=== PATIENT | female | born 1975 | race Caucasian/White ===

== ENCOUNTER 2020-02-25 05:09 | Day surgery (SDC) | payer BC ==
[2020-02-24 11:48] LABS: BASOPHILS 0.8 % (0-2); EOSINOPHILS 2.1 % (0-7); HEMATOCRIT 35.8 % (36.0-48.0); HEMOGLOBIN 10.4 g/dL (12-16); IMMATURE GRANULOCYTES 0.2 % (0-5); LYMPHOCYTES 27.5 % (15-50); MCH 22.3 pg (26.0-34.0); MCHC 29.1 g/dL (31.0-37.0); MCV 76.7 fL (80.0-100.0); MEAN PLATELET VOLUME 9.1 fL (7.4-10.4); MONOCYTES 6.7 % (2-11); NEUTROPHILS 62.7 % (40-80); PLATELET COUNT 313 10x3/uL (130-400); RBC 4.67 10x6/uL (4.00-5.40); WBC 5.2 10x3/uL (4.8-10.8)
[2020-02-24 11:55] LABS: UDS - AMPHET NEGATIVE QUAL (NEGATIVE); UDS - BARB NEGATIVE QUAL (NEGATIVE); UDS - BENZO POSITIVE QUAL (NEGATIVE); UDS - COCAINE NEGATIVE QUAL (NEGATIVE); UDS - OPIATE NEGATIVE QUAL (NEGATIVE); UDS - PCP NEGATIVE QUAL (NEGATIVE); UDS - THC NEGATIVE QUAL (NEGATIVE)
[2020-02-24 12:13] LABS: CALC OSMOLALITY 274 mosm/kg (275-300); CALCIUM 9.2 mg/dL (8.5-10.1); CARBON DIOXIDE 28.4 mmol/L (21.0-32.0); CHLORIDE - SERUM 104 mmol/L (98-107); CREATININE - SERUM 0.6 mg/dL (0.6-1.3); GLUCOSE 87 mg/dL (74-106); POTASSIUM - SERUM 3.8 mmol/L (3.5-5.1); SODIUM 138 mmol/L (136-145); UREA NITROGEN 12 mg/dL (7-18); eGFR NON AFRICAN AMERICAN > 90 mL/min (90-120)
[~2020-02-25] VITALS: Ht 160 cm; Wt 86.4 kg
[~2020-02-25 05:09] MED LIST: BUPROPION HCL75 MG PO; LASIX40 MG PO; NORVASC10 MG PO; SYNTHROID50 MCG PO; XANAX1 MG PO
[2020-02-25] MEDS ORDERED: XANAX1 MG PO (05:46)
[2020-02-25] MEDS ORDERED: TORADOL10 MG PO (05:47)
[2020-02-25 05:52] VITALS: BP 122/85; BMI 33.2
[2020-02-25 06:11] LABS: HCG URINE NEGATIVE (NEGATIVE)
--- NOTE | 2020-02-25 08:51 | NUR ---
GROUNDING PAD LEFT THIGH LOT #[id number] 06/30/2021
[2020-02-25 10:17] VITALS: BP 104/56
--- NOTE | 2020-02-25 10:30 | NUR ---
RECEIVED BY BED FROM RECOVERY, SHE IS SLIGHTLY DROWSY BUT RESPONDS QUICKLY AND EASILY TO QUESTIONS, RATES PAIN AT 2/10. PETERSEN TO BEDSIDE DRAIN WITH 75ML CLEAR URINE NOTED. IV TO RIGHT WRIST WITH LR AT 125ML/HR VIA PUMP. SCD'S BILAT PER ORDERS. NO NAUSEA AT THIS TIME. LARGE ICE WATER PROVIDED. SIDE RAILS UP X 2 WITH CALL LIGHT IN REACH.
--- NOTE | 2020-02-25 11:30 | NUR ---
PT IS AWAKE AND ALERT, DENIES NAUSEA AND RATES PAIN AT 2/10. IV SALINE LOCKED AND PETERSEN CATH REMOVED WITH TOTAL OUTPUT OF 800ML/HR. SHE IS ABLE TO SIT UP ON SIDE OF BED AND AMBULATE TO BATHROOM. VOIDS 100ML CLEAR URINE. BENSON CARE PER SELF, MESH BRIEFS AND BENSON PAD PROVIDED. BACK TO BED WITHOUT COMPLAINT. CALL LIGHT IN REACH.
--- NOTE | 2020-02-25 12:27 | NUR ---
UP TO BATHROOM, VOIDS 400ML WITHOUT COMPLAINT. DISCHARGE ORDER RECEIVED FROM DR HANSEN.
[2020-02-25] MEDS ORDERED: PERCOCET 7.5/321 TAB PO (12:29)
[2020-02-25] MEDS ORDERED: NEURONTIN 300300 MG PO (12:30)
[2020-02-25] MEDS ORDERED: ESTRACE2 MG PO (12:30)
--- NOTE | 2020-02-25 12:45 | NUR ---
VERBAL AND WRITTEN DISCHARGE INSTRUCTIONS GONE OVER WITH PT, SHE IS ALSO GIVEN WRITTEN SCRIPTS FOR PERCOCET 7.5/325MG, ESTRACE 2MG, TORDAL 10MG, AND NEUROTIN 300MG. RATES PAIN AT 5/10 AND IS GIVEN PERCOCET 5/325MG 2 TABLETS ORDERED. UP TO VOID AGAIN AND WILL CALL WHEN READY FOR WHEELCHAIR.
--- NOTE | 2020-02-25 12:56 | NUR ---
TAKEN OUT BY WHEELCHAIR HOME WITH SPOUSE.
[2020-02-25 13:00] VITALS: BP 104/59; Ht 160 cm; Wt 86.4 kg
--- NOTE | 2020-03-03 16:06 | OP ---
PATIENT NAME: GUERA OLVERA MEDICAL RECORD: [id number] :71 LOCATION:D[facility] ADMISSION DATE: SURGEON: CHITO HANSEN MD DATE OF OPERATION: 02/25/2020 PREOPERATIVE DIAGNOSIS: Abnormal uterine bleeding. POSTOPERATIVE DIAGNOSIS: Abnormal uterine bleeding. PROCEDURE PERFORMED: Total laparoscopic hysterectomy with bilateral salpingo-oophorectomy. PRIMARY SURGEON: Chito Hansen MD ANESTHESIOLOGIST: Dr. Andrew. ANESTHESIA: General. FINDINGS: Uterus, tubes, and ovaries are unremarkable. What was visualized of the abdominal anatomy was also unremarkable. SPECIMENS REMOVED: Uterus with cervix, bilateral tubes, and ovaries. SPECIMEN DISPOSITION: All specimens to pathology. ESTIMATED BLOOD LOSS: Less than or equal to 50 cc. FLUIDS: 1200 cc lactated Ringer's. URINE OUTPUT: 300 cc clear urine. COMPLICATIONS: None. DRAIN: Horton to gravity discontinued upon arrival to the floor. INDICATIONS: The patient is a 44-year-old female with dysfunctional uterine bleeding. The patient has tried conservative therapy without relief. The patient has a negative impact on her quality of life and desires definitive treatment. The patient has also requested removal of her ovaries. Hormone replacement therapy, and surgical postmenopausal state has been discussed. DESCRIPTION OF PROCEDURE: After informed consent was assured, the patient was taken to the operating room, anesthetic was obtained without difficulty. The patient was now prepped and draped in the usual sterile fashion. A uterine manipulator was placed and attention was now directed to the umbilicus. The infraumbilical incision site was selected and injected with Marcaine. An incision was made and the 5-mm trocar was inserted without difficulty. Pneumoperitoneum was developed and the patient was placed in steep Trendelenburg position. Accessory ports are now placed in the left lower quadrant. This is a 5 mm port. A right lower quadrant port was also placed and this is an 11 mm port. From the left side, a grasper was introduced to the pelvis and the right ovary and tube was elevated. Using a Thunderbeat coagulation cutter, the infundibulopelvic ligament was compressed, coagulated, and . The dissection was carried out underneath the ovary and tube across the round ligament and the anterior leaf of the broad ligament was now opened to the OPERATIVE REPORT [id number] GUERA OLVERA midline. The posterior leaf was dissected free of the vascular bundle of the right side of the uterus, which was compressed, coagulated, and . The ureters had been inspected and found to be well lateral to any area of dissection. The contralateral side was now addressed. From the right, a grasper inserted and a coagulation cutter was inserted into the left lower quadrant. The device was used to compress, coagulate, and separate the infundibulopelvic ligament and continue the dissection underneath the ovary and tube across the round ligament and the anterior lip of the broad ligament was now opened. The posterior leaf was dissected free of the vascular bundle of the left side, which was compressed, coagulated, and . Starting at the 12 o'clock position from the left dissection now begins of the uterus from the vaginal cuff. The dissection was carried from the 12-6 o'clock on the left and completed in a 12 to 6 o'clock fashion on the right. The uterus, tubes, and ovaries now pulled into the vagina maintaining the pneumoperitoneum. The pelvis was irrigated and irrigant removed. Using an 0 Stratafix stitch on a CT-2 needle, the cuff was now closed in a running fashion starting on the patient's right side and completing on the left corner of the cuff. Uterosacral ligaments were incorporated into this close. The pelvis again was irrigated and irrigation removed. Gunner was now placed into the pelvis. Visualization of the operative field reveals adequate hemostasis. Pneumoperitoneum was released as the accessory trocars were removed from the pelvis. Primary trocar was now removed and all sites closed with a subcuticular stitch. Specimen was passed to the waiting attendant. Sponge, lap, needle counts were correct times 2 at the conclusion of this procedure. The patient will go to the floor for observation. TRANSINT:[id number] Voice Confirmation ID: [id number] DOCUMENT ID: [id number] CHITO HANSEN MD at 1606 CC: [id number] DICTATION DATE: 03/02/20 1347 FOREIGN BROADCAST SPECIALIST: 03/02/[id number] [facility] 02/25/20 [facility] [address] [id number]
== END 2020-02-25 13:05 | disposition home or self-care (01) ==
LOC: D.OPS 05:09 → D.PAN 07:00 → D.LD 09:51 → D.OPS 13:05
PROVIDERS: ATTEND Obstetrics & Gynecology
DX: N93.9 Abnormal uterine and vaginal bleeding, unspecified (principal); E03.9 Hypothyroidism, unspecified; I10 Essential (primary) hypertension; R73.03 Prediabetes; N94.5 Secondary dysmenorrhea